=== PATIENT | female | born 1970 | race African-American/Black ===

== ENCOUNTER 2019-12-04 22:22 | Emergency (ER) | payer OTHER ==
[~2019-12-04] VITALS: Ht 170.2 cm; Wt 84.0 kg
[2019-12-04] MEDS ORDERED: ASPIRIN 81MG TABLET PO ONE (23:00)
[2019-12-04 23:23] LABS: HEMATOCRIT. 38.8 % (36.0-48.0); HEMOGLOBIN. 12.8 g/dL (12.0-16.0); MEAN CORPUSCULAR HEMOGLOBIN 28.3 pg (28.0-32.0); MEAN CORPUSCULAR VOLUME 86.3 fL (81.0-99.0); PLATELET 313 x1000/uL (130-400)
[2019-12-04 23:25] LABS: CHLORIDE 107 mEq/L (98-107)
[2019-12-04 23:31] LABS: D-DIMER 0.19 mg/L FEU (<0.50); PROTHROMBIN TIME 10.7 sec (9.6-11.0)
[2019-12-04 23:37] LABS: HCG SCREEN NEGATIVE
[2019-12-05] MEDS ORDERED: IOHEXOL-350 100 ML BOTTLE ONE (00:02)
[2019-12-05 01:22] VITALS: BP 109/71
[2019-12-05 01:45] LABS: ATYPICAL LYMPHOCYTES 5; PLATELET ESTIMATE NORMAL
== END 2019-12-05 03:03 | disposition home or self-care (01) ==
LOC: ER 22:22
DX: R07.89 Other chest pain (principal)
CPT/HCPCS: 36415; 71045; 71275; 80053; 83880; 84484; 84703; 85025; 85379; 85610; 93005; 99285; Q9967; Z7610